=== PATIENT | female | born 1960 | race Caucasian/White ===

== ENCOUNTER 2018-01-28 08:40 | Day surgery (SDC) | payer OTHER ==
[~2018-01-28] VITALS: Ht 167.6 cm; Wt 65.3 kg
[~2018-01-28 08:40] MED LIST: FLEXERIL5 MG PO; HAIR SKIN NAIL1 EACH PO; MOTRIN800 MG PO; ULTRAM50 MG PO; XANAX0.5 MG PO
== END 2018-01-28 10:00 | disposition home or self-care (01) ==
LOC: PAIN 08:40 → SDC 09:30 → PAIN 10:00
PROC: 3E0S33Z Introduction of Anti-inflammatory into Epidural Space, Percutaneous Approach (ICD-10-PCS; principal; 2018-01-28)
DX: M54.14 Radiculopathy, thoracic region (principal); G89.29 Other chronic pain; M51.9 Unspecified thoracic, thoracolumbar and lumbosacral intervertebral disc disorder; M43.9 Deforming dorsopathy, unspecified; F17.200 Nicotine dependence, unspecified, uncomplicated; Z83.3 Family history of diabetes mellitus
CPT/HCPCS: J1100; J2250; J3010